=== PATIENT | male | born 1950 | race Native Hawaiian/Other Pacific Islander ===

== ENCOUNTER 2022-06-18 14:21 | Outpatient (CLI) | payer OTHER | END 2022-06-18 19:24 | disposition home or self-care (01) | LOC: RAD 14:21 | PROVIDERS: ATTEND Nurse Practitioner Family | DX: M54.41 Lumbago with sciatica, right side (principal) ==

== ENCOUNTER 2022-07-19 10:15 | Outpatient (CLI) | payer OTHER | END 2022-07-19 22:08 | disposition home or self-care (01) | LOC: MRI 10:15 | PROVIDERS: ATTEND Internal Medicine | DX: M54.59 Other low back pain (principal) ==